=== PATIENT | male | born 2000 | race Caucasian/White ===

== ENCOUNTER 2021-01-31 12:25 | Day surgery (SDC) | payer OTHER ==
[2021-01-31] MEDS ORDERED: Fentanyl 100 MCG/2 ML VIAL ONE ×3 (14:04→17:38)
[2021-01-31] MEDS ORDERED: cefOXitin Sodium/Dextrose 2 GM/50 ML BAG ONE (14:26)
[2021-01-31] MEDS ORDERED: Midazolam HCl 2 mg/2 ml Vial ONE (15:25)
[2021-01-31] MEDS ORDERED: Bupivacaine 0.25% HCL 30 ML VIAL ONE (15:29)
[2021-01-31] MEDS ORDERED: Lidocaine 1% w/Epinephrine 1:100K 20 ML VIAL ONE (15:29)
[2021-01-31] MEDS ORDERED: Dexamethasone 20 MG/5 ML VIAL ONE (15:50)
[2021-01-31] MEDS ORDERED: Ondansetron PF 4 MG/2 ML Vial ONE (15:50)
[2021-01-31] MEDS ORDERED: Rocuronium Bromide 10 MG/ML (10ML VIAL) ONE (15:50)
[2021-01-31] MEDS ORDERED: Lidocaine 1% PF 5 ML VIAL ONE (15:50)
[2021-01-31] MEDS ORDERED: Ketorolac Tromethamine 30 MG/ML VIAL ONE (15:50)
[2021-01-31] MEDS ORDERED: PROPOFOL 200 MG/20 ML VIAL ONE (15:50)
[2021-01-31] MEDS ORDERED: SUGAMMADEX SODIUM 200 MG/2 ML VIAL ONE (16:25)
[2021-01-31] MEDS ORDERED: Meperidine HCl/PF 25 MG/ML VIAL ONE (16:44)
[2021-01-31] MEDS ORDERED: HYDROcodone/Acetaminophen 5/325 mg Tablet ONE ×2 (19:06→19:52)
== END 2021-01-31 20:05 | disposition home or self-care (01) ==
LOC: SDC 12:25
PROVIDERS: ATTEND Surgery
PROC: 0DTJ4ZZ Resection of Appendix, Percutaneous Endoscopic Approach (ICD-10-PCS; principal; 2021-01-31)
DX: K35.80 Unspecified acute appendicitis (principal)
CPT/HCPCS: 88304; J0694; J1100; J1885; J2175; J2250; J2405; J2704; J3010; S0020